=== PATIENT | female | born 1945 | race Hispanic/Latino ===

== ENCOUNTER → 2019-06-07 | Outpatient (CLI) | payer OTHER ==
[~2019-06-07] MED LIST: AMLO10TA7 PO; ASPI-555 PO; CALC1TAB2 PO; DOCU-132 PO; ESOM40CA54 PO; FISH PO; LEVO100T12 PO; ROSU5TAB PO
== END | disposition home or self-care (01) ==
LOC: RAH 09:32
PROVIDERS: ATTEND Internal Medicine Gastroenterology
DX: K76.89 Other specified diseases of liver (principal); N20.0 Calculus of kidney; K21.9 Gastro-esophageal reflux disease without esophagitis
CPT/HCPCS: 76700

== ENCOUNTER 2022-02-16 22:56 | Emergency (ER) | payer OTHER ==
[~2022-02-16] VITALS: Ht 154.9 cm; Wt 63.5 kg
[~2022-02-16 22:56] MED LIST changes: +AMLO-258 PO; -AMLO10TA7 PO; +AMOX1TAB15 PO; +ASPI-1197 PO; -ASPI-555 PO; +CALC-1009 PO; -CALC1TAB2 PO; +CYCL5TAB PO; -DOCU-132 PO; +DOCU100T PO; -ESOM40CA54 PO; -FISH PO; +FISH1CAP63 PO; +IBUP-2077 PO; -LEVO100T12 PO; +LEVO88CA4 PO; +METF-444 PO; +OMEP20TA20 PO; -ROSU5TAB PO; +ROSU5TAB12 PO; +VITA1CAP17 PO
[2022-02-16] MEDS ORDERED: 0.9%NACL 1000ML 1,000 ML IV SCH (23:30)
[2022-02-16 23:34] LABS: BASOPHILS % (AUTO) 0.5 % (0.0-5.0); EOSINOPHILS % (AUTO) 4.8 % (0.0-8.0); HEMATOCRIT 38.1 % (36-48); LYMPHOCYTES % (AUTO) 22.8 % (21.0-51.0); MEAN CORPUSCULAR HEMOGLOBIN 29.5 pg (27.0-33.0); MEAN CORPUSCULAR HGB CONC 33.3 g/dL (32.0-36.0); MEAN CORPUSCULAR VOLUME 88.6 fL (79-99); MONOCYTES % (AUTO) 10.7 % (3.0-13.0); NEUTROPHILS % (AUTO) 60.5 % (40.0-77.0); PLATELET COUNT (AUTO) 245 K/uL (130-400); RED CELL DISTRIBUTION WIDTH 12.8 % (11.0-15.5); WHITE BLOOD COUNT (AUTO) 8.8 K/uL (4.8-10.8)
[2022-02-16 23:38] LABS: APPEARANCE,URINE Clear (CLEAR); BILIRUBIN,URINE Negative (NEGATIVE); COLOR,URINE Dark Yellow (YELLOW); GLUCOSE, URINE (UA) Negative (NEGATIVE); KETONES,URINE Trace mg/dL (NEGATIVE); LEUKOCYTE ESTERASE ,URINE Small (NEGATIVE); NITRATE,URINE Negative (NEGATIVE); OCCULT BLOOD,URINE Moderate (NEGATIVE); PH,URINE 5.5 (5.0-8.0); PROTEIN,URINE POS 1+ mg/dL (NEGATIVE); UROBILINOGEN,URINE 0.2 mg/dL (0.2-1.0)
[2022-02-16 23:45] LABS: BACTERIA,URINE None Seen /HPF (None Seen); MUCUS,URINE None Seen LPF (None Seen); SQUAMOUS EPITHELIAL CELL,UR None Seen /HPF (0-2)
[2022-02-16 23:50] LABS: POTASSIUM 3.6 mmol/L (3.5-5.1)
[2022-02-16 23:55] LABS: ALBUMIN 3.6 g/dL (3.5-5.0); BILIRUBIN,TOTAL 0.3 mg/dL (0.2-1.0)
[2022-02-17] MEDS ORDERED: KETOROLAC 15MG/ML VIAL (15MG/ML) IV ONE
[2022-02-17] MEDS ORDERED: FENTANYL 12 MCG/HR PATCH TD SCH
[2022-02-17] MEDS ORDERED: KETOROLAC 15MG/ML VIAL (15MG/ML) ONE (00:01)
[2022-02-17] MEDS ORDERED: FENTANYL 25 MCG/HR PATCH TD ONE (00:01)
[2022-02-17 00:27] VITALS: BP 128/72
== END 2022-02-17 00:38 | disposition home or self-care (01) ==
LOC: EDH 22:56
DX: N13.30 Unspecified hydronephrosis (principal); R10.32 Left lower quadrant pain; E11.9 Type 2 diabetes mellitus without complications; E78.00 Pure hypercholesterolemia, unspecified; I10 Essential (primary) hypertension; M19.90 Unspecified osteoarthritis, unspecified site; R31.9 Hematuria, unspecified; Z79.1 Long term (current) use of non-steroidal anti-inflammatories (NSAID); Z79.82 Long term (current) use of aspirin; Z79.84 Long term (current) use of oral hypoglycemic drugs; Z79.899 Other long term (current) drug therapy; Z88.1 Allergy status to other antibiotic agents; Z88.5 Allergy status to narcotic agent; Z90.49 Acquired absence of other specified parts of digestive tract
CPT/HCPCS: 36415; 80053; 81001; 83605; 83690; 84484; 85025; 96361; 96374; 99283; J1885

== ENCOUNTER 2022-02-20 05:56 | Day surgery (SDC) | payer OTHER ==
[2022-02-18 14:31] LABS: BASOPHILS % (AUTO) 0.3 % (0.0-5.0); EOSINOPHILS % (AUTO) 0.2 % (0.0-8.0); HEMATOCRIT 40.8 % (36-48); LYMPHOCYTES % (AUTO) 11.4 % (21.0-51.0); MEAN CORPUSCULAR HEMOGLOBIN 28.6 pg (27.0-33.0); MEAN CORPUSCULAR HGB CONC 31.9 g/dL (32.0-36.0); MEAN CORPUSCULAR VOLUME 89.7 fL (79-99); MONOCYTES % (AUTO) 7.2 % (3.0-13.0); NEUTROPHILS % (AUTO) 80.3 % (40.0-77.0); PLATELET COUNT (AUTO) 277 K/uL (130-400); RED BLOOD CELL COUNT(AUTO) 4.55 MIL/uL (4.00-5.50); RED CELL DISTRIBUTION WIDTH 12.9 % (11.0-15.5)
[2022-02-18 14:43] LABS: PROTHROMBIN TIME 10.9 SEC (9.6-11.6)
[2022-02-18 14:44] LABS: PARTIAL THROMBOPLASTIN TIME 25.4 SEC (26.3-35.5)
[2022-02-18 14:51] LABS: ALBUMIN 3.8 g/dL (3.5-5.0); BILIRUBIN,TOTAL 0.4 mg/dL (0.2-1.0); CREATININE 0.8 mg/dL (0.5-1.5); POTASSIUM 3.4 mmol/L (3.5-5.1); TOTAL PROTEIN, SERUM 8.5 g/dL (6.0-8.3)
[2022-02-19 15:45] VITALS: BP 141/70
[~2022-02-20] VITALS: Ht 154.9 cm; Wt 63.5 kg
[2022-02-20] MEDS ORDERED: LIDOCAINE HCL 1% 20 ML VIAL ONE (07:06)
[2022-02-20] MEDS ORDERED: HEPARIN 10,000 UNIT/10ML (1,000 UNIT/ML) VIAL ONE (07:06)
[2022-02-20] MEDS ORDERED: FENTANYL CITRATE PF 50 MCG/1 ML 2ML VIAL ONE ×2 (07:08→13:19)
[2022-02-20] MEDS ORDERED: MIDAZOLAM HCL 1 MG/ML 2ML VIAL ONE ×2 (07:08→13:19)
[2022-02-20 07:19] VITALS: BP 160/75
[2022-02-20] MEDS ORDERED: 0.9%NACL 1000ML 1,000 ML IV ONE (07:33)
[2022-02-20] MEDS ORDERED: LIDOCAINE HCL 1% 10 ML VIAL ONE (13:13)
[2022-02-20] MEDS ORDERED: HEPARIN 1,000 UNIT VIAL ONE (13:13)
[2022-02-20] MEDS ORDERED: OCTYL 2-CYANOACRYLATE 1 EACH TP ONE (14:20)
[2022-02-20 15:10] VITALS: BP 121/64
[2022-02-20 15:25] VITALS: BP 122/64
[2022-02-20 15:40] VITALS: BP 132/69
[2022-02-20 15:55] VITALS: BP 130/67
== END 2022-02-20 15:55 | disposition home or self-care (01) ==
LOC: DAH 05:56
PROVIDERS: ATTEND Internal Medicine Hematology & Oncology
DX: C83.30 Diffuse large B-cell lymphoma, unspecified site (principal); I10 Essential (primary) hypertension; E11.9 Type 2 diabetes mellitus without complications; M19.90 Unspecified osteoarthritis, unspecified site; R63.4 Abnormal weight loss; Z79.82 Long term (current) use of aspirin; Z79.01 Long term (current) use of anticoagulants; Z79.899 Other long term (current) drug therapy; Z90.49 Acquired absence of other specified parts of digestive tract; Z98.890 Other specified postprocedural states; Z88.1 Allergy status to other antibiotic agents; Z88.5 Allergy status to narcotic agent
CPT/HCPCS: 36415; 36561; 77001; 80053; 82948 ×2; 85025; 85610; 85730; 93005; C1788; C1894; J1644 ×2; J2250; J3010; J3490; J7030; 99156; 99157

== ENCOUNTER 2023-09-04 10:24 | Day surgery (SDC) | payer OTHER ==
[2023-09-03 14:58] LABS: BASOPHILS # (AUTO) 0.03 K/uL (0.00-0.20); BASOPHILS % (AUTO) 0.4 % (0.0-5.0); EOSINOPHILS # (AUTO) 0.47 K/uL (0.00-0.70); HEMATOCRIT 36.2 % (36-48); IMMATURE GRANULOCYTE ABSOLUTE 0.02 K/uL (0-1); LYMPHOCYTES # (AUTO) 1.8 K/uL (1.0-4.8); LYMPHOCYTES % (AUTO) 27.2 % (21.0-51.0); MEAN CORPUSCULAR HEMOGLOBIN 30.3 pg (27.0-33.0); MEAN CORPUSCULAR HGB CONC 32.6 g/dL (32.0-36.0); MEAN CORPUSCULAR VOLUME 93.1 fL (79-99); MONOCYTES # (AUTO) 0.7 K/uL (0.1-1.0); MONOCYTES % (AUTO) 9.8 % (3.0-13.0); NEUTROPHILS # (AUTO) 3.7 K/uL (1.8-7.7); NEUTROPHILS % (AUTO) 55.3 % (40.0-77.0); PLATELET COUNT (AUTO) 173 K/uL (130-400); RED BLOOD CELL COUNT(AUTO) 3.89 MIL/uL (4.00-5.50); RED CELL DISTRIBUTION WIDTH 13.2 % (11.0-15.5); WHITE BLOOD COUNT (AUTO) 6.7 K/uL (4.8-10.8)
[2023-09-03 15:11] LABS: INR < 0.93 (0.85-1.15); PROTHROMBIN TIME 10.6 SEC (9.6-11.6)
[2023-09-03 15:17] LABS: ALBUMIN 3.6 g/dL (3.5-5.0); BILIRUBIN,TOTAL 0.3 mg/dL (0.2-1.0); CREATININE 0.9 mg/dL (0.5-1.5); POTASSIUM 4.2 mmol/L (3.5-5.1); TOTAL PROTEIN, SERUM 7.2 g/dL (6.0-8.3)
[2023-09-03 15:46] VITALS: BP 141/69; PULSE 74; RESP 16
[~2023-09-04] VITALS: Ht 152.4 cm; Wt 56.7 kg
[~2023-09-04 10:24] MED LIST changes: -AMOX1TAB15 PO; -CALC-1009 PO; +CYAN50009 PO; -CYCL5TAB PO; -DOCU100T PO; -FISH1CAP63 PO; -IBUP-2077 PO; +ROSU10TA28 PO; -ROSU5TAB12 PO; -VITA1CAP17 PO
[2023-09-04] MEDS ORDERED: 0.9%NACL 1000ML 1,000 ML IV ONE (10:43)
[2023-09-04 11:30] VITALS: BP 120/58; PULSE 69; RESP 18
[2023-09-04] MEDS ORDERED: LIDOCAINE HCL 1% MDV 50ML VIAL ONE (12:28)
[2023-09-04 13:45] VITALS: BP 125/59; PULSE 67; RESP 14
[2023-09-04 14:00] VITALS: BP 110/58; PULSE 61; RESP 14
[2023-09-04 14:15] VITALS: BP 113/77; PULSE 66; RESP 15
== END 2023-09-04 14:45 | disposition home or self-care (01) ==
LOC: DAH 10:24
PROVIDERS: ATTEND Internal Medicine Hematology & Oncology
DX: Z45.2 Encounter for adjustment and management of vascular access device (principal); C83.33 Diffuse large B-cell lymphoma, intra-abdominal lymph nodes; R59.1 Generalized enlarged lymph nodes; N13.30 Unspecified hydronephrosis; I10 Essential (primary) hypertension; K21.9 Gastro-esophageal reflux disease without esophagitis; E78.5 Hyperlipidemia, unspecified; E11.9 Type 2 diabetes mellitus without complications; M19.90 Unspecified osteoarthritis, unspecified site; E03.9 Hypothyroidism, unspecified; N20.0 Calculus of kidney; G51.0 Bell's palsy; K59.00 Constipation, unspecified; J30.2 Other seasonal allergic rhinitis; E87.6 Hypokalemia; R53.83 Other fatigue; F41.1 Generalized anxiety disorder; Z79.01 Long term (current) use of anticoagulants
CPT/HCPCS: 80053; 85025; 85610; 85730; 36415; 36590; 82948; 71045; J7030; J1644; J3490